=== PATIENT | female | born 1995 | race Caucasian/White ===

== ENCOUNTER → 2024-06-16 13:15 | Outpatient (REF) | payer OTHER, SELFPAY | LOC: HWRAD 13:15 | PROVIDERS: ATTENDING PHYSICIAN Obstetrics & Gynecology; FAMILY PHYSICIAN Nurse Practitioner | DX: N91.5 Oligomenorrhea, unspecified (principal); E28.2 Polycystic ovarian syndrome | CPT/HCPCS: 76830; 76856 ==

== ENCOUNTER → 2025-03-16 10:17 | Outpatient (REF) | payer OTHER, SELFPAY | LOC: PNTC 10:17 | PROVIDERS: ATTENDING PHYSICIAN Obstetrics & Gynecology | DX: Z36.0 Encounter for antenatal screening for chromosomal anomalies (principal); Z36.82 Encounter for antenatal screening for nuchal translucency | CPT/HCPCS: 76801; 76813 ==